=== PATIENT | female | born 1990 | race American Indian/Alaskan Native ===

== ENCOUNTER 2016-03-18 12:44 | Emergency (ER) | payer MEDICAID ==
[2016-03-18 13:50] VITALS: BP 118/76
--- NOTE | 2016-03-18 17:33 | Emergency Department Report ---
HPI - General Chief Complaint: Upper Respiratory Infection Time Seen by Provider: 03/18/16 17:10 - HPI HPI: 25-year-old female presents today with productive cough and headache 2 weeks. Patient states that she has clear white mucus with coughing. Positive for runny nose. Positive for gradual onset of headache and states that her headache comes and goes. 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 Tried Delsym with some relief. Denies fever, chills, nausea, vomiting, sore throat, chest pain, shortness of breath, abdominal pain. ED Past Medical Hx - Social History Smoking Status: Never Smoker Substance Use Type: Alcohol - Medications Home Medications: Home Medications Medication Instructions Recorded Confirmed Last Taken Type Promethazine [Phenergan TAB] 25 mg PO Q6HR PRN #12 tab 08/27/15 Unknown Rx Ibuprofen [Motrin 800 MG tab] 800 mg PO Q8HR PRN #60 tablet 09/11/15 Unknown Rx Sulfamethoxazole/Trimethoprim 1 each PO BID #14 tablet 09/11/15 Unknown Rx [Bactrim DS TAB] traMADol [Ultram 50 MG tab] 50 mg PO Q6HR PRN #20 tablet 09/11/15 Unknown Rx ALBUTEROL Inhaler [ProAir HFA 2 puff IH QID PRN #1 inhalation 03/18/16 Unknown Rx Inhaler] Fluticasone [Flonase] 1 spray NS QDAY #1 bottle 03/18/16 Unknown Rx guaiFENesin/DEXTROMETHORPHAN 1 each PO Q12H #30 tbmp.12hr 03/18/16 Unknown Rx [Mucinex Dm ER 1,200-60 mg Tab] ED Review of Systems ROS: Stated complaint: HEAD COLD Other details as noted in HPI Constitutional: denies: chills, fever, malaise Eyes: denies: eye pain ENT: denies: ear pain, throat pain, congestion Respiratory: cough. denies: shortness of breath, wheezing Cardiovascular: denies: chest pain, palpitations Endocrine: no symptoms reported Gastrointestinal: denies: abdominal pain, nausea, vomiting Skin: denies: rash Neurological: headache. denies: weakness Physical Exam - Physical Exam Vital Signs: Vital Signs 03/18/16 13:46 Temperature 98.3 F Pulse Rate 92 H Respiratory 18 Rate Blood Pressure 118/76 O2 Sat by Pulse 100 Oximetry Physical Exam: GENERAL: The patient is well-developed and well-nourished. Patient is in NAD. HEAD: Normocephalic. Atraumatic. EYES: PERRL. EARS: External auditory canals and tympanic membranes clear; hearing grossly intact. NOSE: Normal nasal mucosa with no nasal discharge. THROAT: No erythema, swelling or exudates. NECK: Supple, nontender, without lymphadenopathy. CHEST/LUNGS: Clear to auscultation throughout. HEART/CARDIOVASCULAR: Regular rate and rhythm. ABDOMEN: Abdomen is soft, nontender. No guarding or rebound tenderness. EXTREMITIES: Peripheral pulses intact. Capillary refill less than 2 seconds. NEURO: Alert and oriented x 3. Normal gait. ED Course Vital Signs 03/18/16 13:46 Temperature 98.3 F Pulse Rate 92 H Respiratory 18 Rate Blood Pressure 118/76 O2 Sat by Pulse 100 Oximetry ED Medical Decision Making - Lab Data Vital Signs 03/18/16 13:46 Temperature 98.3 F Pulse Rate 92 H Respiratory 18 Rate Blood Pressure 118/76 O2 Sat by Pulse 100 Oximetry - Medical Decision Making 25-year-old female presents today with cough and cold symptoms 2 weeks. Her physical exam is unremarkable. Patient is in no acute distress at this time. She will be discharged home and is encouraged to follow up with a primary care provider. She will be sent home on albuterol inhaler, Flonase and Mucinex DM and is encouraged to return to the emergency room for any worsening symptoms. Critical care attestation.: If time is entered above; I have spent that time in minutes in the direct care of this critically ill patient, excluding procedure time. ED Disposition Clinical Impression: URI (upper respiratory infection) Qualifiers: URI type: unspecified URI Qualified Code(s): J06.9 - Acute upper respiratory infection, unspecified Disposition: DISCHARGED TO HOME OR SELFCARE Is pt being admited?: No Does the pt Need Aspirin: No Condition: Stable Instructions: Upper Respiratory Infection (ED) Additional Instructions: Follow-up with primary care provider. Return to the emergency department if symptoms worsen. Prescriptions: Fluticasone [Flonase] 1 spray NS QDAY #1 bottle guaiFENesin/DEXTROMETHORPHAN [Mucinex Dm ER 1,200-60 mg Tab] 1 each PO Q12H #30 tbmp.12hr ALBUTEROL Inhaler [ProAir HFA Inhaler] 2 puff IH QID PRN #1 inhalation PRN Reason: Shortness Of Breath Referrals: PRIMARY CARE, [Primary Care Provider] - 3-5 Days [facility] [Outside] - 3-5 Days Forms: Work/School Release Form(ED), Accompanied Note Time of Disposition: 17:33
== END 2016-03-18 17:44 | disposition home or self-care (01) ==
LOC: ED 12:44
DX: J06.9 Acute upper respiratory infection, unspecified (principal)
CPT/HCPCS: 99282

== ENCOUNTER 2017-03-30 09:02 | Emergency (ER) | payer SELFPAY ==
[2017-03-30 09:51] LABS: Basophils % (Auto) 0.7 % (0.0-1.8); Eosinophils # (Auto) 0.1 K/mm3 (0.0-0.4); Hematocrit 40.8 % (30.3-42.9); Hemoglobin 13.3 gm/dl (10.1-14.3); Lymphocytes # (Auto) 1.9 K/mm3 (1.2-5.4); Lymphocytes % (Auto) 41.4 % (13.4-35.0); Mean Corpuscular HGB Conc 33 % (30-34); Mean Corpuscular Hemoglobin 28 pg (28-32); Mean Corpuscular Volume 87 fl (79-97); Monocytes # (Auto) 0.4 K/mm3 (0.0-0.8); Monocytes % (Auto) 8.8 % (0.0-7.3); Red Blood Count 4.71 M/mm3 (3.65-5.03)
[2017-03-30 09:53] LABS: Platelet Count 173 K/mm3 (140-440)
[2017-03-30 10:05] LABS: Alanine Aminotransferase 13 units/L (7-56); Albumin 3.9 g/dL (3.9-5); BUN/Creatinine Ratio 10; Blood Urea Nitrogen 6 mg/dL (7-17); Calcium 9.2 mg/dL (8.4-10.2); Hemolysis Index 13
[2017-03-30 10:38] LABS: Bacteria,Urine 1+ /HPF (Negative); Bilirubin,Urine NEG (Negative); Blood,Urine NEG (Negative); Color,Urine Straw (Yellow); Nitrite,Urine NEG (Negative); Protein,Urine <15 mg/dL mg/dL (Negative); Urobilinogen,Urine < 2.0 mg/dL (<2.0)
--- NOTE | 2017-03-30 12:24 | Emergency Department Report ---
HPI - General Chief Complaint: Abdominal Pain Time Seen by Provider: 03/30/17 11:54 - HPI HPI: Patient is a 26-year-old female with no prior medical condition who presents to ED complaining of lower pelvic cramping that started on Thursday 3 days ago. Patient states pain has been intermittently. Patient admits to nausea but denies vomiting, fever, chills, nausea, vomiting, shortness of breath, chest pain. She denies dysuria or vaginal discharge. She states last menstrual period was 02/24/2017. ED Past Medical Hx - Past Medical History Previous Medical History?: No - Surgical History Past Surgical History?: No - Social History Smoking Status: Never Smoker Substance Use Type: None - Medications Home Medications: Home Medications Medication Instructions Recorded Confirmed Last Taken Type Promethazine [Phenergan TAB] 25 mg PO Q6HR PRN #12 tab 08/27/15 Unknown Rx Sulfamethoxazole/Trimethoprim 1 each PO BID #14 tablet 09/11/15 Unknown Rx [Bactrim DS TAB] traMADol [Ultram 50 MG tab] 50 mg PO Q6HR PRN #20 tablet 09/11/15 Unknown Rx ALBUTEROL Inhaler [ProAir HFA 2 puff IH QID PRN #1 inhalation 03/18/16 Unknown Rx Inhaler] Fluticasone [Flonase] 1 spray NS QDAY #1 bottle 03/18/16 Unknown Rx guaiFENesin/DEXTROMETHORPHAN 1 each PO Q12H #30 tbmp.12hr 03/18/16 Unknown Rx [Mucinex Dm ER 1,200-60 mg Tab] Ibuprofen [Motrin 800 MG tab] 800 mg PO Q8HR PRN #20 tablet 03/30/17 Unknown Rx Sulfamethoxazole/Trimethoprim 1 each PO BID #14 tablet 03/30/17 Unknown Rx [Bactrim DS TAB] ED Review of Systems ROS: Stated complaint: ABD PAIN Other details as noted in HPI Constitutional: denies: chills, fever Eyes: denies: eye pain, eye discharge, vision change ENT: denies: ear pain, throat pain Respiratory: denies: cough, shortness of breath, wheezing Cardiovascular: denies: chest pain, palpitations Endocrine: no symptoms reported Gastrointestinal: denies: abdominal pain, nausea, diarrhea Genitourinary: denies: urgency, dysuria, discharge Musculoskeletal: denies: back pain, joint swelling, arthralgia Skin: denies: rash, lesions Neurological: denies: headache, weakness, paresthesias Psychiatric: denies: anxiety, depression Hematological/Lymphatic: denies: easy bleeding, easy bruising Physical Exam - Physical Exam Vital Signs: Vital Signs 03/30/17 09:21 Temperature 98.4 F Pulse Rate 91 H Respiratory 16 Rate Blood Pressure 123/78 O2 Sat by Pulse 100 Oximetry Physical Exam: GENERAL: Alert and oriented x3, no apparent distress, Normal Gait, atraumatic. HEAD: Head is normocephalic and a-traumatic. NECK: Supple. Non edematous, No carotid bruits. No lymphadenopathy or thyromegaly. No C-spine tenderness LUNGS: Symetrical with respiration, No wheezing, no rales or crackles, CTAB. HEART: S1, S2 present, regular rate and rhythm without murmur, no rubs, no gallops. Non tender to palpation ABDOMEN: No organomegaly was noted,Positive bowel sounds, soft, and non- distended. . Nontender to palpation on all Quadrants, NO CVA tenderness. BACK: Full range of motion, no spinal tenderness, nontender to palpation. SKIN: Warm and dry, No lesions, No ulceration or induration present. ED Course Vital Signs 03/30/17 09:21 Temperature 98.4 F Pulse Rate 91 H Respiratory 16 Rate Blood Pressure 123/78 O2 Sat by Pulse 100 Oximetry ED Medical Decision Making - Lab Data Result diagrams: 03/30/17 09:26 03/30/17 09:26 - Medical Decision Making 26-year-old female presents with urinary tract infection ED course: CBC, BMP, urinalysis and test ordered. All labs within normal limits, urinalysis positive for bacteria. I discussed this finding with the patient. I discussed the patient as she is dehydrated to me should she increases her water intake. I discussed admission follow-up with primary care physician. I discussed if any worsening symptoms or new symptoms arise return to ED immediately. Prior signs are stable. Patient is no acute distress. Critical care attestation.: If time is entered above; I have spent that time in minutes in the direct care of this critically ill patient, excluding procedure time. ED Disposition Clinical Impression: UTI (urinary tract infection) Qualifiers: Urinary tract infection type: acute cystitis Hematuria presence: without hematuria Qualified Code(s): N30.00 - Acute cystitis without hematuria Disposition: TO HOME OR SELFCARE Is pt being admited?: No Does the pt Need Aspirin: No Condition: Stable Instructions: Urinary Tract Infection in Women (ED), Abdominal Pain (ED) Additional Instructions: Make sure to follow up with the primary care physician as discussed. Take all your medications as you've been prescribed. If you have any worsening symptoms or develop new symptoms please return to ED immediately. Prescriptions: Ibuprofen [Motrin 800 MG tab] 800 mg PO Q8HR PRN #20 tablet PRN Reason: Pain Sulfamethoxazole/Trimethoprim [Bactrim DS TAB] 1 each PO BID #14 tablet Referrals: PRIMARY CAREMD [Primary Care Provider] - 3-5 Days BONNIE ADAMS MD [Referring] - 3-5 Days [facility] [Outside] - 3-5 Days [facility] [Outside] - 3-5 Days Forms: Work/School Release Form(ED) Time of Disposition: 12:28
[2017-03-30 15:29] VITALS: BP 120/76
== END 2017-03-30 12:50 | disposition home or self-care (01) ==
LOC: ED 09:02
DX: N39.0 Urinary tract infection, site not specified (principal)
CPT/HCPCS: 36415; 80053; 81001; 84703; 85025; 99283

== ENCOUNTER 2017-05-26 09:27 | Emergency (ER) | payer OTHER ==
[2017-05-26 11:21] VITALS: BP 117/68
[2017-05-26 12:27] LABS: HCG Qualitative,Urine Negative (Negative)
[2017-05-26 12:28] LABS: Bilirubin,Urine NEG (Negative); Blood,Urine NEG (Negative); Color,Urine Yellow (Yellow); Mucus,Urine FEW /HPF; Protein,Urine <15 mg/dL mg/dL (Negative); Urobilinogen,Urine < 2.0 mg/dL (<2.0)
--- NOTE | 2017-05-26 12:34 | Emergency Department Report ---
ED Abdominal Pain HPI - General Chief Complaint: Abdominal Pain Stated Complaint: ABDOMINAL PAIN Time Seen by Provider: 05/26/17 12:26 Source: patient Mode of arrival: Ambulatory Limitations: No Limitations - History of Present Illness Initial Comments: Bertha is a healthy 26-year-old female who presents with right lower quadrant and left lower quadrant pain. Cramping. She is concerned for . Last menstrual period April 15. She stated that she's changed her diet recently. She has avoided meat this week. She is attempting to eat healthy. He stated that the last 3 years since the of her last child, she's had increased stomach upset and GERD. She noticed that she had gained weight with the Implanon use. She currently does not have any pain at this point. No fever. No diarrhea. No chills. No vomiting. MD Complaint: abdominal pain -: Gradual, days(s) (3-4) Location: LLQ, RLQ Migration to: no migration Severity: mild Quality: cramping Consistency: intermittent Improves With: rest Context: other (new diet change) - Related Data Previous Rx's Medication Instructions Recorded Last Taken Type Promethazine [Phenergan TAB] 25 mg PO Q6HR PRN #12 tab 08/27/15 Unknown Rx Sulfamethoxazole/Trimethoprim 1 each PO BID #14 tablet 09/11/15 Unknown Rx [Bactrim DS TAB] traMADol [Ultram 50 MG tab] 50 mg PO Q6HR PRN #20 tablet 09/11/15 Unknown Rx ALBUTEROL Inhaler [ProAir HFA 2 puff IH QID PRN #1 inhalation 03/18/16 Unknown Rx Inhaler] Fluticasone [Flonase] 1 spray NS QDAY #1 bottle 03/18/16 Unknown Rx guaiFENesin/DEXTROMETHORPHAN 1 each PO Q12H #30 tbmp.12hr 03/18/16 Unknown Rx [Mucinex Dm ER 1,200-60 mg Tab] Ibuprofen [Motrin 800 MG tab] 800 mg PO Q8HR PRN #20 tablet 03/30/17 Unknown Rx Sulfamethoxazole/Trimethoprim 1 each PO BID #14 tablet 03/30/17 Unknown Rx [Bactrim DS TAB] Allergies Allergy/AdvReac Type Severity Reaction Status Date / Time No Known Allergies Allergy Unverified 09/28/14 21:47 ED Review of Systems ROS: Stated complaint: ABDOMINAL PAIN Other details as noted in HPI Comment: All other systems reviewed and negative Constitutional: denies: fever, malaise Respiratory: denies: cough ED Past Medical Hx - Past Medical History Previous Medical History?: No - Surgical History Past Surgical History?: No - Social History Smoking Status: Never Smoker Substance Use Type: Alcohol - Medications Home Medications: Home Medications Medication Instructions Recorded Confirmed Last Taken Type Promethazine [Phenergan TAB] 25 mg PO Q6HR PRN #12 tab 08/27/15 Unknown Rx Sulfamethoxazole/Trimethoprim 1 each PO BID #14 tablet 09/11/15 Unknown Rx [Bactrim DS TAB] traMADol [Ultram 50 MG tab] 50 mg PO Q6HR PRN #20 tablet 09/11/15 Unknown Rx ALBUTEROL Inhaler [ProAir HFA 2 puff IH QID PRN #1 inhalation 03/18/16 Unknown Rx Inhaler] Fluticasone [Flonase] 1 spray NS QDAY #1 bottle 03/18/16 Unknown Rx guaiFENesin/DEXTROMETHORPHAN 1 each PO Q12H #30 tbmp.12hr 03/18/16 Unknown Rx [Mucinex Dm ER 1,200-60 mg Tab] Ibuprofen [Motrin 800 MG tab] 800 mg PO Q8HR PRN #20 tablet 03/30/17 Unknown Rx Sulfamethoxazole/Trimethoprim 1 each PO BID #14 tablet 03/30/17 Unknown Rx [Bactrim DS TAB] ED Physical Exam - General Limitations: No Limitations General appearance: alert, in no apparent distress - Head Head exam: Present: atraumatic, normocephalic - Eye Eye exam: Present: normal appearance - ENT ENT exam: Present: mucous membranes moist - Neck Neck exam: Present: normal inspection - Respiratory Respiratory exam: Present: normal lung sounds bilaterally. Absent: respiratory distress, wheezes, rales, rhonchi - Cardiovascular Cardiovascular Exam: Present: regular rate, normal rhythm. Absent: systolic murmur, diastolic murmur, rubs, gallop - GI/Abdominal GI/Abdominal exam: Present: soft, normal bowel sounds. Absent: distended, tenderness, guarding, rebound - Extremities Exam Extremities exam: Present: normal inspection - Back Exam Back exam: Present: normal inspection - Neurological Exam Neurological exam: Present: alert, oriented X3 - Psychiatric Psychiatric exam: Present: normal affect, normal mood - Skin Skin exam: Present: warm, dry, intact, normal color. Absent: rash ED Course Vital Signs 05/26/17 11:17 Temperature 98.5 F Pulse Rate 82 Respiratory 16 Rate Blood Pressure 117/68 O2 Sat by Pulse 99 Oximetry ED Medical Decision Making - Medical Decision Making Ms. Stein presents with nondescript pain bilateral lower quadrants. I suspect food intolerance from the diet. I gave diet instructions. No indication of or appendicitis. With intermittent abdominal pain for the last 2 years also suspect an element of IBS. I gave patient extensive education and counseling. Critical care attestation.: If time is entered above; I have spent that time in minutes in the direct care of this critically ill patient, excluding procedure time. ED Disposition Clinical Impression: Abdominal pain Disposition: DC-01 TO HOME OR SELFCARE Is pt being admited?: No Does the pt Need Aspirin: No Condition: Stable Instructions: Abdominal Pain (ED) Referrals: [facility] [Outside] - 3-5 Days Forms: Work/School Release Form(ED) Time of Disposition: 12:37
== END 2017-05-26 12:43 | disposition home or self-care (01) ==
LOC: ED 09:27
DX: R10.31 Right lower quadrant pain (principal); R10.32 Left lower quadrant pain; K21.9 Gastro-esophageal reflux disease without esophagitis
CPT/HCPCS: 81001; 81025; 99283

== ENCOUNTER 2018-04-16 05:42 | Emergency (ER) | payer MEDICAID, OTHER ==
[2018-04-16 06:06] VITALS: BP 116/70
[2018-04-16] MEDS ORDERED: DUONEB *Not for PRN Use IH ONE (07:25)
--- NOTE | 2018-04-16 07:25 | Emergency Department Report ---
Minor Respiratory - HPI Chief Complaint: Upper Respiratory Infection Stated Complaint: COLD SX/DIZZINESS Time Seen by Provider: 04/16/18 07:12 Duration: 5 Days Pain Location: Facial, Throat, Nose, Ear Severity: mild Minor Respiratory: Yes Rhinorrhea, Yes Sore Throat, Yes Able to Tolerate Fluids, Yes Ear Pain, Yes Cough, No Sick Contacts, No Hemoptysis, No Chest Pain, No Shortness of Breath, No Fever Other History: She is a pleasant 27 year-old female who comes to the ER complaining of what started as nasal congestion and headache now resulting in a lot of coughing associated with dizziness when she coughs hard. She states this is going on for 1 week. She denies fever. Patient denies a medical history and she is on no home medications daily. She has taken Mucinex and it is just made her symptoms worse ED Review of Systems ROS: Stated complaint: COLD SX/DIZZINESS Other details as noted in HPI Comment: All other systems reviewed and negative Constitutional: denies: chills, fever Eyes: as per HPI ENT: as per HPI, ear pain, throat pain. denies: dental pain, hearing loss, epistaxis Respiratory: see HPI, cough. denies: orthopnea Cardiovascular: denies: chest pain, palpitations Endocrine: denies: no symptoms reported, flushing Gastrointestinal: denies: abdominal pain Genitourinary: denies: urgency Skin: denies: rash Neurological: as per HPI, headache, vertigo Psychiatric: denies: depression Hematological/Lymphatic: denies: easy bleeding ED Past Medical Hx - Past Medical History Previous Medical History?: No - Surgical History Past Surgical History?: No - Social History Smoking Status: Never Smoker Substance Use Type: None - Medications Home Medications: Home Medications Medication Instructions Recorded Confirmed Last Taken Type Amoxicillin 500 mg PO BID #20 capsule 04/16/18 Unknown Rx Benzonatate [Tessalon Perles] 100 mg PO Q8HR PRN #20 capsule 04/16/18 Unknown Rx Fluticasone [Flonase] 1 spray NS QDAY #1 bottle 04/16/18 Unknown Rx predniSONE [Deltasone] 20 mg PO DAILY #5 tablet 04/16/18 Unknown Rx Minor Respiratory Exam - Exam General: Vital signs noted. No distress. Alert and acting appropriately. HEENT: Yes Pharyngeal Erythema, Yes Moist Mucous Membranes, Yes Rhinorrhea, Yes Maxillary Tenderness, No Pharyngeal Exudates, No Conjuctival Injection, No Frontal Tenderness Ear: Neither TM Bulge, Neither TM Erythema, Neither EAC Pain, Neither EAC Discharge Neck: Yes Supple, No Adenopathy Lungs: Yes Good Air Exchange, No Wheezes (BILATERAL), No Ronchi, No Stridor, No Cough, No Labored Respirations, No Retractions, No Use of Accessory Muscles, No Other Abnormal Lung Sounds Heart: Yes Regular, No Murmur Abdomen: Yes Normal Bowel Sounds, No Tenderness, No Peritoneal Signs Skin: No Rash, No Edema Neurologic: Alert and oriented, no deficits. Musculoskeletal: Unremarkable. ED Course Vital Signs 04/16/18 06:05 Temperature 98.2 F Pulse Rate 101 H Respiratory 18 Rate Blood Pressure 116/70 O2 Sat by Pulse 98 Oximetry ED Medical Decision Making - Medical Decision Making SIMPLE URTI STARTED SINUSITIS PER HISTORY NOW BRONCHITIS WELL AFEBRILE NON TOXIC VSS TAKING PO RT TREATMENT WITH CLEARING OF WHEEZING DC HOME WITH DC PLAN OF CARE Critical care attestation.: If time is entered above; I have spent that time in minutes in the direct care of this critically ill patient, excluding procedure time. ED Disposition Clinical Impression: Sinusitis, Bronchitis Disposition: DC-01 TO HOME OR SELFCARE Is pt being admited?: No Does the pt Need Aspirin: No Condition: Stable Instructions: Acute Bronchitis (ED), Upper Respiratory Infection (ED) Additional Instructions: STOP MUCINEX MEDS ORDERED TODAY MOTRIN OR TYLENOL FOR FEVER OR PAIN FOLLOW UP WITH PCP ON THURSDAY IF NO BETTER DIET AND ACTIVITY TOLERATED Referrals: PATEL EISENBERG MD [Primary Care Provider] - 3-5 Days Time of Disposition: 08:13
[2018-04-16] MEDS ORDERED: DELTASONE PO NR (08:00)
== END 2018-04-16 09:00 | disposition home or self-care (01) ==
LOC: ED 05:42
DX: J40 Bronchitis, not specified as acute or chronic (principal); J32.9 Chronic sinusitis, unspecified; R42 Dizziness and giddiness
CPT/HCPCS: 94640